=== PATIENT | female | born 1990 | race Caucasian/White ===

== ENCOUNTER 2016-12-24 09:07 | Emergency (ER) | payer OTHER | END 2016-12-24 10:22 | disposition home or self-care (01) | LOC: SED 09:07 | DX: J01.80 Other acute sinusitis (principal); G44.209 Tension-type headache, unspecified, not intractable; J02.9 Acute pharyngitis, unspecified; Z87.891 Personal history of nicotine dependence | CPT/HCPCS: 99283 ==